=== PATIENT | female | born 1995 | race Caucasian/White ===

== ENCOUNTER 2020-05-12 06:33 | Emergency (ER) | payer OTHER ==
[2020-05-12 06:49] LABS: HEMATOCRIT 42 % (35-52); HEMOGLOBIN 14.5 G/DL (11.5-16.0); MEAN CORPUSCULAR HEMOGLOBIN 31 PG (25-34); MEAN CORPUSCULAR HGB CONC 34 G/DL (32-36); MEAN CORPUSCULAR VOLUME 90 FL (80-99); MEAN PLATELET VOLUME 9.3 FL (7.4-10.4); PLATELET COUNT 355 10^3/uL (130-400); WHITE BLOOD COUNT 9.1 10^3/uL (4.3-11.0)
[2020-05-12 06:50] LABS: BASOPHILS % (AUTO) 0 % (0-10); EOSINOPHILS % (AUTO) 0 % (0-10); LYMPHOCYTES % (AUTO) 22 % (12-44); MONOCYTES # (AUTO) 0.5 X 10^3 (0.0-1.0); MONOCYTES % (AUTO) 5 % (0-12); NEUTROPHILS # (AUTO) 6.6 X 10^3 (1.8-7.8); NEUTROPHILS % (AUTO) 73 % (42-75)
[2020-05-12 07:01] LABS: HCG,QUALITATIVE URINE NEGATIVE (NEGATIVE)
[2020-05-12 07:02] LABS: CLARITY,URINE SLIGHTLY CLOUDY; COLOR,URINE DARK YELLOW
[2020-05-12 07:03] LABS: BACTERIA,URINE FEW /HPF; BILIRUBIN,URINE NEGATIVE (NEGATIVE); GLUCOSE, URINE (UA) NEGATIVE (NEGATIVE); KETONES,URINE TRACE (NEGATIVE); LEUKOCYTE ESTERASE ,URINE NEGATIVE (NEGATIVE); NITRITE,URINE NEGATIVE (NEGATIVE); PROTEIN,URINE 2+ (NEGATIVE); RBC,URINE 50-100 /HPF
[2020-05-12 07:06] LABS: AMPHETAMINE SCREEN, URINE NEGATIVE (NEGATIVE); BARBITURATE SCREEN URINE NEGATIVE (NEGATIVE); BENZODIAZEPINES SCREEN URINE NEGATIVE (NEGATIVE); CANNABINOID SCREEN, URINE NEGATIVE (NEGATIVE); COCAINE SCREEN URINE NEGATIVE (NEGATIVE); METHADONE STAT NEGATIVE (NEGATIVE); METHAMPHETAMINE SCREEN URINE S NEGATIVE (NEGATIVE); OPIATE SCREEN URINE NEGATIVE (NEGATIVE); OXYCODONE STAT NEGATIVE (NEGATIVE); PROPOXYPHENE STAT NEGATIVE (NEGATIVE); TRICYCLIC ANTIDEPRESSANTS SCRE NEGATIVE (NEGATIVE)
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
[2020-05-12 07:21] LABS: ALANINE AMINOTRANSFERASE 19 U/L (0-55); ALBUMIN 4.8 GM/DL (3.2-4.5); ALKALINE PHOSPHATASE 75 U/L (40-136); BILIRUBIN,TOTAL 0.2 MG/DL (0.1-1.0); BUN/CREATININE RATIO 13; CALCIUM 9.3 MG/DL (8.5-10.1); CARBON DIOXIDE 20 MMOL/L (21-32); CHLORIDE 105 MMOL/L (98-107); CREATININE SERUM 0.91 MG/DL (0.60-1.30); GFR ESTIMATED > 60; GLUCOSE 107 MG/DL (70-105); POTASSIUM 3.5 MMOL/L (3.6-5.0); SALICYLATE 0.8 MG/DL (5.0-20.0); SODIUM 143 MMOL/L (135-145); TOTAL PROTEIN 7.7 GM/DL (6.4-8.2)
[2020-05-12 07:22] LABS: ACETAMINOPHEN < 10 UG/ML (10-30)
[2020-05-12] MEDS ORDERED: BCP (07:36)
[2020-05-12] MEDS ORDERED: Topamax (07:36)
[2020-05-12] MEDS ORDERED: Prozac (07:36)
--- NOTE | 2020-05-12 07:46 | NUR ---
Call to [facility] after hours/spoke with Haskins to request screening. Discussion of medical screening clearance and last ETOH level 163 with patient is Protective Custody. A tracking number #[id number] rec'd and need to call back when alcohol level below 100. Notified Dr Telles.
--- NOTE | 2020-05-12 08:00 | NUR ---
William a blood alcohol level per Dr order. Explained the process to QUIN[facility] and patient.
--- NOTE | 2020-05-12 08:30 | NUR ---
ETOH is 134 and not meeting criteria for screening exam. Will redraw later. QUINCY and patient notified.
[2020-05-12] MEDS ORDERED: FLUO20CA42 PO (08:44)
[2020-05-12] MEDS ORDERED: CETI10TA17 PO (08:44)
--- NOTE | 2020-05-12 11:12 | NUR ---
Call to [facility] and spoke with Ruthy to request screen for ETOH level down to 98. Numerous questions asked in order to get to proceeding with request. Spoke with patient to ask her physical address and type of health care ins. Pt is currently in protective custody ([facility]).
--- NOTE | 2020-05-12 11:35 | NUR ---
The request for screening created a new tracking number #[id number]. The request for facesheet and records.
[2020-05-12] MEDS ORDERED: ACETAMINOPHEN 500 MG TAB (TYLENOL) PO STA (12:38)
[2020-05-12] MEDS ORDERED: ONDANSETRON 4 MG (ZOFRAN) ORAL DISSOLVE TAB PO STA (12:45)
[2020-05-12] MEDS ORDERED: ONDANSETRON 4 MG/2 ML (SDV) Z0FRAN IVP ONE (12:45)
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
--- NOTE | 2020-05-12 12:49 | NUR ---
Pt given Tylenol 500 mg and ODT Zofran 4 mg for pain and nausea. Pt did not want an IV Zofran and order changed to p.o.
--- NOTE | 2020-05-12 13:22 | NUR ---
Call to [facility], spoke with Shelia, to check on the status of screening request. [facility] remains 2nd on list and they have taken longer getting 1st screen completed.
--- NOTE | 2020-05-12 14:36 | NUR ---
[facility] called to discuss the screening request
--- NOTE | 2020-05-12 14:39 | NUR ---
Zoom ID [id number] received and screening began
--- NOTE | 2020-05-12 15:01 | NUR ---
Zoom meeting ended on laptop. [facility] provided nurse the laptop.
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
--- NOTE | 2020-05-12 15:15 | NUR ---
Transferred the screener to a portable phone for Officer Trim to have a more private conversation.
--- NOTE | 2020-05-12 15:30 | NUR ---
Officer Trim ended call and reports to RN the screener is making a decision and will return call to ER soon. Officer Trim in to visit with patient.
--- NOTE | 2020-05-12 16:25 | NUR ---
Call from Gil and discussed the planning of if mom takes patient home she will do safety plan, if pt refuses and wants to go with boyfriend she will need to place her in [facility] hospitalization. Screener will call the mom.
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
--- NOTE | 2020-05-12 17:10 | NUR ---
Call from Latanya of MH screening and requests to speak with patient. She would like to make safety plan. Officer Moises is also speaking with Latanya. Temo was placed on phone for one more discussion of what the Safety Plan details.
--- NOTE | 2020-05-12 17:20 | NUR ---
[facility] has spoken with patient's mother several times and mother will provide the safety and enforce the safety plan. Mother is arriving to ED parking lot. Patient is reviewing the Safety Plan from [facility] and is now signing the plan. Reviewed the discharge instructions from Dr Telles. Officer Moises is speaking with patient again about the health and welfare and safety intent from all of [facility] involvement today and establishing a good rapport with pt.
[2020-05-12 17:30] VITALS: BP 121/78
--- NOTE | 2020-05-12 17:30 | NUR ---
Patient released from ED to be escorted by Officer Trim to mother's vehicle in parking lot. Pt has copies of discharge summary and Safety Plan along with return of home medications released to ER nurse from [facility] possession. Pt verbalizes understanding of instructions reviewed. Discharged without incident.
== END 2020-05-12 17:30 | disposition home or self-care (01) ==
LOC: ER FS 06:41
DX: S10.91XA Abrasion of unspecified part of neck, initial encounter (principal); R45.851 Suicidal ideations; F10.129 Alcohol abuse with intoxication, unspecified; F32.9 Major depressive disorder, single episode, unspecified; Z88.8 Allergy status to other drugs, medicaments and biological substances; X83.8XXA Intentional self-harm by other specified means, initial encounter
CPT/HCPCS: 36415; 80053; 80306; 81000; 84703; 85025; 99284; G0480 ×3; 80320; 80329